=== PATIENT | female | born 1965 | race Hispanic/Latino ===

== ENCOUNTER → 2023-08-25 | Day surgery (SDC) | payer BC ==
[2023-08-22 11:17] VITALS: BP 131/77; PULSE 64; RESP 18; TEMP 97.9; O2SAT 100
[2023-08-22 12:31] LABS: BASOPHIL % 0.3 % (0.0-0.2); EOSINOPHIL % 0.7 % (0.0-5.0); HEMATOCRIT(ML) 43.7 % (36.0-46.0); HEMOGLOBIN 14.3 g/dL (12.0-15.0); LYMPHOCYTES # 1.86 10^3/uL1 (1.0-4.8); LYMPHOCYTES % 31.5 % (24.0-44.0); MEAN CORP HGB 30.3 pg (26-34); MEAN CORP HGB CONCENTRATION 32.7 g/dL (33-36.5); MEAN CORP VOLUME 92.6 fL (78-100); MONOCYTES # 0.4 10^3/uL (0.3-0.8); MONOCYTES % 6.3 % (5.0-12.0); NEUTROPHIL # 3.6 10^3/uL (1.8-7.7); PLATELET COUNT 194 10^3/uL (150-400); RED BLOOD CELL 4.72 10^6/uL (4.00-5.20); RED CELL DISTRIBUTION WIDTH 12.6 % (11.5-14.5); WHITE BLOOD CELL 5.9 10^3/uL (4.5-11.0)
[2023-08-22 12:35] LABS: +ADD MANUAL DIFF(NO CHRG) NO
[2023-08-22 13:16] LABS: ALBUMIN(ML) 3.6 g/dL (3.4-5.0); ALBUMIN/GLOBULIN RATIO 0.972; ANION GAP 9.2; BUN/CREATININE RATIO 34.54 (10.0-20.0); CALCIUM 9.2 mg/dL (8.4-10.5); CARBON DIOXIDE 29.1 mmol/L (20.0-32); CREATININE SERUM 0.55 mg/dL (0.59-1.40); EST GFR, NON-AA 113.5 (>/=60); POTASSIUM 4.3 mmol/L (3.6-5.2)
[~2023-08-25] VITALS: Ht 165.1 cm; Wt 69.4 kg
[2023-08-25] VITALS (25 sets, daily range): BP systolic 100–135; BP diastolic 48–76; PULSE 61–81; RESP 16; TEMP 97–98.1; O2SAT 90–97
[~2023-08-25] MED LIST: BIOT10TA PO; CHOL500045 PO; CYAN-26 PO; DECADRON ONE; DILAUDID IV ONE; DILAUDID ONE; DIPRIVAN IV ONE; LACTATED RINGERS 1,000 ML IV ONE; LACTATED RINGERS 1,000 ML ONE; MAGN100T PO; MELO15TA24 PO; METO25TA4 PO; NS 3000ML IRR IR ONE; OFIRMEV 1000 MG/100 ML 100 ML IV ONE; OMEG-105 PO; PROTONIX IV IV ONE; REGLAN ONE; ROSU40TA PO; SEMA2PEN SUBCUT; SODIUM CHLORIDE IRR BOTTLE IR ONE; SUBLIMAZE 100MCG/2ML ONE; TORADOL ONE; TRAM50TA PO; UBID100C23 PO; XYLOCAINE 1%-EPI 1:100,000 ONE; XYLOCAINE 2% 5ML VIAL ONE; ZOFRAN IV ONE; ZOFRAN ONE
[2023-08-25] MEDS: REGLAN IV ONE (09:17)
[2023-08-25] MEDS: DILAUDID IV ONE ×3 (09:18→09:45)
== END | disposition home or self-care (01) ==
LOC: SDC 06:33
PROVIDERS: ATTEND Orthopaedic Surgery
DX: S83.241A Other tear of medial meniscus, current injury, right knee, initial encounter (principal); S83.281A Other tear of lateral meniscus, current injury, right knee, initial encounter; M17.11 Unilateral primary osteoarthritis, right knee; I11.9 Hypertensive heart disease without heart failure; G47.33 Obstructive sleep apnea (adult) (pediatric); E11.9 Type 2 diabetes mellitus without complications; E78.5 Hyperlipidemia, unspecified; Z79.899 Other long term (current) drug therapy; Z90.89 Acquired absence of other organs; Z90.49 Acquired absence of other specified parts of digestive tract; Z98.891 History of uterine scar from previous surgery; Z88.3 Allergy status to other anti-infective agents; W19.XXXA Unspecified fall, initial encounter; Y92.89 Other specified places as the place of occurrence of the external cause; Y93.89 Activity, other specified; Y99.8 Other external cause status
CPT/HCPCS: 29880; 80053; 85025; 36415; 93005; J7120; A4649 ×3; J1100; A4217 ×2; J1170; J0131; J2704; J2001; J2405 ×2; J1885; J3010; J2765; C9113